=== PATIENT | female | born 1935 | race Caucasian/White ===

== ENCOUNTER 2016-05-31 18:20 | Emergency (ER) | payer MEDICARE ==
[2016-05-31] MEDS ORDERED: PREDNISONE 20 MG TABLET ONE (20:13)
[2016-05-31] MEDS ORDERED: MORPHINE SULFATE 4 MG/ML SYRINGE ONE (20:13)
== END 2016-05-31 20:44 | disposition home or self-care (01) ==
LOC: ED 18:20
DX: M54.5 Low back pain (principal); I25.2 Old myocardial infarction; E11.9 Type 2 diabetes mellitus without complications; K21.9 Gastro-esophageal reflux disease without esophagitis; E78.5 Hyperlipidemia, unspecified; E78.00 Pure hypercholesterolemia, unspecified; I10 Essential (primary) hypertension; Z79.84 Long term (current) use of oral hypoglycemic drugs; Z79.82 Long term (current) use of aspirin; Z79.899 Other long term (current) drug therapy; Z88.5 Allergy status to narcotic agent; Z88.8 Allergy status to other drugs, medicaments and biological substances
CPT/HCPCS: 99283 ×2; 96372; J2270; J7512